=== PATIENT | female | born 1985 | race African-American/Black ===

== ENCOUNTER 2019-09-24 09:42 | Emergency (ER) | payer OTHER, MEDICAID, SELFPAY ==
--- NOTE | ~2019-09-24 | XR_ITS ---
EXAMINATION: XR chest 2V DATE: 09/24/2019 11:29 INDICATION: Chest pain TECHNIQUE: PA and lateral views of the chest are obtained. COMPARISON: None available FINDINGS: The lungs are free of acute opacities. There is no pleural effusion or pneumothorax. The ca rdiomediastinal silhouette is normal. The visualized bones and soft tissues are unremarkable. Cholecy stectomy clip is noted in the right upper quadrant. IMPRESSION: 1. No acute cardiopulmonary abnormality. Reviewed, dictated and finalized at location A.
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
--- NOTE | ~2019-09-24 | XR_ITS ---
EXAMINATION: XR shoulder LT min 2V INDICATION: Left shoulder pain TECHNIQUE: Four views of the left shoulder are submitted. COMPARISON: None FINDINGS: Normal alignment. No fracture. Glenohumeral and acromioclavicular joint spaces are normal. Soft tissues are unremarkable. IMPRESSION: No acute osseous abnormality. Reviewed, dictated and finalized at location A.
--- NOTE | ~2019-09-24 | CT_ITS ---
EXAMINATION: CT cervical spine wo con DATE: 09/24/2019 11:24 INDICATION: Neck pain TECHNIQUE: Computed tomography (CT) of the cervical spine was performed without intravenous contrast. The dose-length product (DLP) was 362.07 mGy-cm. Automated exposure control and iterative reconstruc tion technique were employed. COMPARISON: None FINDINGS: There is no fracture, dislocation, or subluxation. The vertebral body heights, alignment, a nd intervertebral disc spaces are normal. The paravertebral soft tissues are unremarkable. The odonto id is intact. IMPRESSION: 1. Normal cervical spine. Reviewed, dictated and finalized at location A. IMPRESSION: 1. Normal cervical spine.
[2019-09-24 09:51] VITALS: BP 133/84; PULSE 83; RESP 20; TEMP 37.3; O2SAT 100
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
[2019-09-24 10:17] VITALS: RESP 14; O2SAT 100
[2019-09-24 10:34] LABS: Basophils Percent Auto 0.8 % (0.2-1.2); Eosinophils Absolute Auto 0.1 K/mm3 (0-0.3); Eosinophils Percent Auto 2.2 % (0-4.4); Hematocrit 38.6 % (37.0-47.0); Hemoglobin 12.5 g/dL (12.0-15.0); Lymphocytes Absolute Auto 2.47 K/mm3 (0.9-3.2); Lymphocytes Percent Auto 50.5 % (18.3-44.2); Mean Corpuscular HGB Conc 32.4 g/dl (32-36); Mean Corpuscular Hemoglobin 27.9 pg (26-34); Mean Corpuscular Volume 86.2 fl (80-100); Mean Platelet Volume 10.1 fl (7.4-10.4); Monocytes Absolute Auto 0.4 K/mm3 (0.1-0.6); Monocytes Percent Auto 8.4 % (2.6-8.5); Neutrophils Absolute Auto 1.9 K/mm3 (1.3-6.7); Neutrophils Percent Auto 38.1 % (45.5-73.1); Platelet Count Result 255 k/mm3 (150-375); Red Blood Count 4.48 M/mm3 (4.2-5.4); Red Cell Distribution Width 14.6 % (11.5-14.5); White Blood Count 4.9 K/mm3 (4.5-10.0)
[2019-09-24 10:37] LABS: Add Urine Microscopic? YES; Appearance Urine Clear (Clear); Bacteria Urine Trace /hpf; Bilirubin Urine Negative (Negative); Blood Urine Negative (Negative); Color Urine Straw (Yellow); Glucose Urine UA Negative (Negative); Ketones Urine Negative (Negative); Leukocyte Esterase Ur Negative LEU/UL (Negative); Mucus Urine Rare /lpf; Nitrate Urine Negative (Negative); Protein Urine Negative (Negative); Specific Grav Ur 1.019 (1.001-1.035); Squamous Epithelial Cell Urine Occasional /hpf (Few); Urobilinogen Urine Negative mg/dL (<2.0); WBC Urine 0-3 /hpf
[2019-09-24 10:49] LABS: Alanine Aminotransferase 12 U/L (4-35); Albumin Level 4.5 g/dL (3.5-5.1); Alkaline Phosphatase 47 U/L (38-126); Aspartate Amino Transferase 19 U/L (14-36); Bilirubin,Total 0.2 mg/dL (0.2-1.3); Blood Urea Nitrogen 13 mg/dL (7-17); Calcium 9.3 mg/dL (8.4-10.2); Carbon Dioxide 28 mmol/L (22-30); Chloride 102 mmol/L (98-107); Estimated CRCL calculation 105 ml/min; Estimated Glomerular Filt Rate > 60; Glucose 96 mg/dL (65-105); Potassium 4.3 mmol/L (3.4-5.0); Sodium 137 mmol/L (137-145)
[2019-09-24] MEDS: KETOROLAC 30 MG/ML VIAL (*BKC) IV PUSH (12:11)
--- NOTE | 2019-09-24 12:32 | PC.NURSE ---
C-Collar removed, EDP notified and is ok with removal, no cervical fractures.
[2019-09-24 12:57] VITALS: BP 120/80; PULSE 80; RESP 20; TEMP 36.7; O2SAT 99
== END 2019-09-24 12:58 | disposition home or self-care (01) ==
PROVIDERS: Emergency Provider Emergency Medicine
DX: S16.1XXA Strain of muscle, fascia and tendon at neck level, initial encounter (principal); S30.1XXA Contusion of abdominal wall, initial encounter; J45.909 Unspecified asthma, uncomplicated; G47.30 Sleep apnea, unspecified; E55.9 Vitamin D deficiency, unspecified; V43.52XA Car driver injured in collision with other type car in traffic accident, initial encounter
CPT/HCPCS: 36415; 71046; 72125; 73030; 74177; 80053; 81001; 81025; 85025; 96374; 99284; J1885; L0140; Q9967

== ENCOUNTER 2019-09-26 14:12 | Outpatient (CLI) | payer OTHER, MEDICAID, SELFPAY ==
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
--- NOTE | ~2019-09-26 | XR_ITS ---
EXAMINATION: XR sacroiliac joints min 3V EXAM DATE: 09/26/2019 14:43 INDICATION: Sacroiliitis. TECHNIQUE: Sacral, bilateral frontal projections. There is no prior study for comparison. FINDINGS: There is IUD projecting over the central aspect of the pelvis. There is mild symmetric dragan ateral sacroiliac primary osteoarthritis. There are no acute fractures or dislocations identified. T here is no subcutaneous gas. Couple of phleboliths. IMPRESSION: Mild bilateral sacroiliac osteoarthritis. Reviewed, dictated and finalized at location A.
== END 2019-09-26 14:13 | disposition home or self-care (01) ==
PROVIDERS: PCP Family Medicine; Visit Provider Family Medicine
DX: M54.5 Low back pain (principal); M46.1 Sacroiliitis, not elsewhere classified; M47.898 Other spondylosis, sacral and sacrococcygeal region
CPT/HCPCS: 72100; 72202

== ENCOUNTER 2019-10-13 13:39 | Outpatient (CLI) | payer MEDICAID, SELFPAY ==
--- NOTE | ~2019-10-13 | US_ITS ---
EXAMINATION: US pelvic complete w TV EXAM DATE: 10/13/2019 14:28 INDICATION: Endometriosis. TECHNIQUE: Pelvic transabdominal and transvaginal sonogram was performed. There are multiple graysca le and Doppler images available for interpretation. Comparison is made to prior examination from 2018. FINDINGS: Uterus measures 6.2 x 3.9 x 6.0 cm, with IUD centrally located inside the endometrial cavi ty. There is probable 8 mm fibroid. Endometrial stripe measures 5 mm, within normal limits. There is no free pelvic fluid. Right adnexa: The ovary measures 6.0 x 5.1 x 6.7 cm, with 2 contiguous cystic regions, larger measuri ng 5.7 x 5.0 x 5.4 cm and the smaller 2.0 x 2.5 x 2.5 cm. There is some proteinaceous fluid layering in the larger region. This could be a hemorrhagic cyst or endometrioma. Cystic neoplasm less likely, not entirely excludable. Ovarian vascular flow confirmed. Left adnexa: The ovary measures 2.8 x 1.5 x 2.1 cm and is morphologically normal. Ovarian vascular fl ow confirmed. IMPRESSION: 1. Complex cystic right ovarian region with layering fluid/protein level. Could be hemorrhagic cyst or endometrioma. Consider 6 week follow-up pelvic sonogram. 2. IUD in expected position. 3. Probable subcentimeter fibroid. Reviewed, dictated and finalized at location A. IMPRESSION: 1. Complex cystic right ovarian region with layering fluid/protein level. Coul d be hemorrhagic cyst or endometrioma. Consider 6 week follow-up pelvic sonogra m. 2. IUD in expected position. 3. Probable subcentimeter fibroid.
== END 2019-10-13 13:40 | disposition home or self-care (01) ==
LOC: ANHIMG 13:40
PROVIDERS: PCP Family Medicine; Visit Provider Student in an Organized Health Care Education/Training Program
DX: Z87.42 Personal history of other diseases of the female genital tract (principal); Z97.5 Presence of (intrauterine) contraceptive device; R93.89 Abnormal findings on diagnostic imaging of other specified body structures
CPT/HCPCS: 76830; 76856

== ENCOUNTER 2019-11-26 23:16 | Emergency (ER) | payer MEDICAID, SELFPAY ==
--- NOTE | ~2019-11-26 | CT_ITS ---
EXAMINATION: CT abdomen pelvis w con EXAM DATE: 11/27/2019 00:54 INDICATION: Abdominal pain, cramping and nausea. TECHNIQUE: Spiral CT of the abdomen and pelvis was performed following intravenous injection of 100 m L Omnipaque 350. Axial, coronal and sagittal images were reviewed. The dose-length product (DLP) fo r this examination was 805.75 mGy-cm. The exposure was tailored according to patient size (auto mA e xposure control), and iterative reconstruction (ASIR) was used as additional dose reduction technique . Comparison is made to prior examination from 09/24/2019. FINDINGS: The liver, spleen, adrenal glands and pancreas are unremarkable. Gallbladder is unremarkab le. No biliary obstruction. Portal and splenic veins are patent. Kidneys enhance symmetrically. T here is no hydronephrosis. The uterus is retroverted with IUD in expected position. Again there is a right-sided teratoma which is bilobulated, measuring about 3 x 5 cm. The bladder is unremarkable. There is no retroperitoneal or pelvic lymphadenopathy. The appendix is normal. The stomach and small bowel are unremarkable. There is expected amount of c olonic stool. No free intraperitoneal gas. The heart is normal in size. There are no pericardial or pleural effusions. The lung bases are unremarkable. Fused T9-11 vertebral bodies. IMPRESSION: 1. No acute intra-abdominal findings. 2. Right ovarian teratoma. Reviewed, dictated and finalized at location A.
[2019-11-26 23:25] VITALS: BP 131/88; PULSE 92; RESP 18; TEMP 36.6; O2SAT 99
[2019-11-27 00:24] LABS: Basophils Percent Auto 0.5 % (0.2-1.2); Eosinophils Absolute Auto 0.2 K/mm3 (0-0.3); Eosinophils Percent Auto 2.5 % (0-4.4); Hematocrit 37.6 % (37.0-47.0); Immature Granulocyte Absolute 0.02 K/mm3 (0.00-0.031); Immature Granulocyte Percent A 0.2 % (0-0.5); Lymphocytes Absolute Auto 3.72 K/mm3 (0.9-3.2); Lymphocytes Percent Auto 45.9 % (18.3-44.2); Mean Corpuscular HGB Conc 31.9 g/dl (32-36); Mean Corpuscular Hemoglobin 27.3 pg (26-34); Mean Corpuscular Volume 85.6 fl (80-100); Mean Platelet Volume 10.3 fl (7.4-10.4); Monocytes Absolute Auto 0.7 K/mm3 (0.1-0.6); Monocytes Percent Auto 8.6 % (2.6-8.5); Neutrophils Absolute Auto 3.4 K/mm3 (1.3-6.7); Neutrophils Percent Auto 42.3 % (45.5-73.1); Platelet Count Result 257 k/mm3 (150-375); Red Blood Count 4.39 M/mm3 (4.2-5.4); Red Cell Distribution Width 15.1 % (11.5-14.5); White Blood Count 8.1 K/mm3 (4.5-10.0)
[2019-11-27 00:30] VITALS: BP 128/90; PULSE 82; RESP 16; O2SAT 97
[2019-11-27 00:31] LABS: Add Urine Microscopic? YES; Amorphous Sediment Urine Few; Appearance Urine Cloudy (Clear); Bacteria Urine Trace /hpf; Bilirubin Urine Negative (Negative); Blood Urine Negative (Negative); Color Urine Yellow (Yellow); Glucose Urine UA Negative (Negative); Ketones Urine Negative (Negative); Leukocyte Esterase Ur Trace LEU/UL (Negative); Mucus Urine Rare /lpf; Nitrate Urine Negative (Negative); Protein Urine Negative (Negative); Specific Grav Ur 1.026 (1.001-1.035); Squamous Epithelial Cell Urine Few /hpf (Few); Urobilinogen Urine Negative mg/dL (<2.0); WBC Urine 0-3 /hpf
[2019-11-27 00:36] LABS: Alanine Aminotransferase 17 U/L (4-35); Albumin Level 4.4 g/dL (3.5-5.1); Alkaline Phosphatase 51 U/L (38-126); Aspartate Amino Transferase 22 U/L (14-36); Bilirubin,Total 0.2 mg/dL (0.2-1.3); Blood Urea Nitrogen 14 mg/dL (7-17); Calcium 9.6 mg/dL (8.4-10.2); Carbon Dioxide 28 mmol/L (22-30); Chloride 103 mmol/L (98-107); Estimated CRCL calculation 107 ml/min; Estimated Glomerular Filt Rate > 60; Glucose 95 mg/dL (65-105); Lipase 90 U/L (23-300); Sodium 135 mmol/L (137-145)
--- NOTE | 2019-11-27 00:41 | ED.ABDPAIN ---
HPI - Abdominal Pain General Chief Complaint: Abdominal Pain Stated Complaint: abd cramping Time Seen by Provider: 11/26/19 23:35 Source: RN notes reviewed History of Present Illness HPI narrative: Patient presents to emergency department from home for abdominal pain. Patient states symptoms began 3 days ago. Patient states the pain is diffuse throughout the abdomen described as cramping. States associated nausea. Denies any fevers or chills chest pain shortness of breath vomiting diarrhea or any other symptoms of concern. States she took ibuprofen this morning with minimal relief Related Data Home Medications Medication Instructions Recorded Confirmed beclomethasone dipropionate 80 1 inhalation INHALATION Q12H 09/21/19 mcg/actuation HFA breath activated aerosol albuterol sulfate 90 mcg/actuation 1 puff INHALATION Q4H PRN 09/26/19 09/26/19 aerosol inhaler fluticasone propionate 50 1 spray NASAL DAILY 09/26/19 09/26/19 mcg/actuation nasal spray,suspension levonorgestrel 20 mcg/24 hours (5 1 device I-UTERINE ONCE 09/26/19 09/26/19 yrs) 52 mg intrauterine device Allergies Allergy/AdvReac Type Severity Reaction Status Date / Time acetaminophen Allergy Unknown Rash Verified 11/18/19 08:51 hydrocodone Allergy Unknown Rash Verified 11/18/19 08:51 Review of Systems Review of Systems: Narrative: Gen.: Denies fevers or chills ENT: Denies congestion Respiratory: Denies shortness of breath or cough CV: Denies chest pain or palpitations GI: See HPI denies burning, urgency, frequency or hematuria Musculoskeletal: Denies back pain or muscle pain Neuro: Denies numbness, tingling, weakness or focal weakness Skin: Denies rash Except as documented, all other systems reviewed and negative [facility] Past Medical History Medical History Anemia Asthma Depression Endometriosis H/O fracture of fibula Hypersomnia Migraine Narcolepsy and cataplexy Ovarian cyst Presence of retained hardware Renal cyst Seasonal allergic rhinitis Sleep apnea Vitamin D deficiency Surgical History Surgical History History of cholecystectomy History of laparoscopy S/P hardware removal [place] teeth removed Social History Social History Smoking status: Never smoker Alcohol intake: current Substance use: never Gender identity (if verbalized by the patient): Female Exam Narrative: Exam Narrative: APPEARANCE: No acute distress, nontoxic, resting in bed HEENT: Normocephalic, atraumatic, OMM RESPIRATORY: No respiratory distress, clear to auscultation bilaterally with no rhonchi wheezing or rales CARDIOVASCULAR: RRR s murmur ABDOMINAL: Soft, nondistended, diffusely tender to palpation, no rebound or guarding MUSCULOSKELETAl: Moves all extremities. No clubbing, cyanosis or edema. NEURO: Awake and alert. Following commands, speech normal, no focal deficits SKIN:: Warm, dry. Normal Color PSYCHIATRIC: Normal affect/mood Course Course Emergency Course: Discussed with patient CT results and reviewed old records. The patient is been worked up for her dermoid cyst by Dr. Burgess as an outpatient Patient states pain is improved with morphine and resolved with dicyclomine Patient states that they are feeling much better at this time. States abdominal pain has resolved. Repeat abdominal exam shows the patient's abdomen to be soft and nontender. Discussed with patient results of workup and diagnosis. Discussed need for follow-up with primary care physician, reasons to return to the emergency department in proper use of medication. Patient understands and agrees to current treatment plan Vital Signs Vital signs: Vital Signs Temperature 97.8 F 11/26/19 23:25 Pulse Rate 92 11/26/19 23:25 Respiratory Rate 18 11/26/19 23:25 Blood Pressure 131/88 11/26/19 23
[2019-11-27] MEDS: SODIUM CHLORIDE 0.9% IV 1,000 ML 999 ML IV CONT (01:00)
[2019-11-27] MEDS: KETOROLAC 30 MG/ML VIAL (*BKC) IV PUSH (01:00)
[2019-11-27] MEDS: ONDANSETRON INJ 4 MG/2 ML VIAL IV PUSH (01:16)
[2019-11-27 02:06] VITALS: BP 131/91; PULSE 82; RESP 16; O2SAT 100
[2019-11-27] MEDS: DICYCLOMINE HCL INJ 20 MG/2 ML VIAL IM (02:42)
[2019-11-27 03:20] VITALS: BP 129/90; PULSE 80; RESP 16; O2SAT 100
== END 2019-11-27 03:25 | disposition home or self-care (01) ==
PROVIDERS: Emergency Provider Emergency Medicine; PCP Family Medicine
DX: N83.202 Unspecified ovarian cyst, left side (principal); Z86.2 Personal history of diseases of the blood and blood-forming organs and certain disorders involving the immune mechanism; N80.9 Endometriosis, unspecified; G47.30 Sleep apnea, unspecified; E55.9 Vitamin D deficiency, unspecified
CPT/HCPCS: 36415; 74177; 80053; 81001; 81025; 83690; 85025; 96361; 96372; 96374; 99284; J0500; J1885; J2405; J7030; Q9967

== ENCOUNTER 2019-11-29 12:57 | Outpatient (CLI) | payer MEDICAID, SELFPAY ==
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
== END 2019-11-29 12:58 | disposition home or self-care (01) ==
LOC: ANHIMG 12:59
PROVIDERS: PCP Family Medicine; Visit Provider Family Medicine
DX: M47.896 Other spondylosis, lumbar region (principal); M99.03 Segmental and somatic dysfunction of lumbar region
CPT/HCPCS: 72148

== ENCOUNTER 2020-01-02 11:22 | Outpatient (CLI) | payer OTHER, SELFPAY ==
--- NOTE | ~2020-01-02 | US_ITS ---
EXAMINATION: US pelvic complete w TV DATE: 01/02/2020 12:38 INDICATION: Unspecified ovarian cyst, right side; history of dermoids on prior CT examinations TECHNIQUE: Multiple transabdominal and endovaginal sonographic images of the pelvis were obtained. COMPARISON: 11/27/2019, 10/13/2019 FINDINGS: The uterus measures 7.6 x 4.9 x 3.8 cm. The endometrial complex measures 5 mm. An IUD is no vesna. The right ovary measures 3.5 x 3.2 x 2.7 cm. A right ovarian cyst has decreased in size now caio uring up to 2.8 cm. The right adnexal dermoids described on CT examination are not identified. The le ft ovary measures 2.9 x 2.0 x 1.5 cm. There is normal vascular flow in the ovaries. There is no free fluid in the pelvis. IMPRESSION: 1. Decreased size of right ovarian cyst. Reviewed, dictated and finalized at location A.
== END 2020-01-02 11:23 | disposition home or self-care (01) ==
PROVIDERS: PCP Family Medicine; Visit Provider Student in an Organized Health Care Education/Training Program
DX: N83.201 Unspecified ovarian cyst, right side (principal)
CPT/HCPCS: 76830; 76856

== ENCOUNTER 2020-01-11 00:25 | Outpatient (CLI) | payer OTHER, SELFPAY ==
[2020-01-11 18:41] LABS: SARS-CoV-2 RNA PCR Negative
== END 2020-01-11 00:26 | disposition home or self-care (01) ==
LOC: ANHCOVIDDT 00:25
PROVIDERS: PCP Family Medicine; Visit Provider Student in an Organized Health Care Education/Training Program
DX: Z01.812 Encounter for preprocedural laboratory examination (principal); Z11.59 Encounter for screening for other viral diseases
CPT/HCPCS: 87635; C9803; U0003

== ENCOUNTER 2020-01-13 01:45 | Day surgery (SDC) | payer OTHER, SELFPAY ==
[2019-12-27 10:47] VITALS: BMI 33.5
--- NOTE | 2020-01-12 16:25 | PM.IMHP ---
H&P: HPI History of Present Illness Date/Time: 01/12/20 16:25 Chief complaint: Dermoid Cyst, Pelvic Pain Narrative: Juliet Carrera is a 34 year old nulligravid female with long history of pelvic pain. Pt was initially referred to [facility] long term care office in 09/2019 for ovarian cysts noted on recent CT scan. Two 1.3cm suspected dermoid within right ovary were noted, however, on most recently follow up imaging, the previously identified dermoid cysts were not visualized and what appears to be a simple cyst has decreased in size and is now 2.8cm. Patient, however, also reported a long history of pelvic pain and dyspareunia since early 2018. Pain was described as dull, occasionally moderate lower abdominal pain. She had laparoscopic surgery in 2003 and states that endometriosis was cleaned out. Current pain is mostly on right side, however, also located on the left side and infraumbilical region. Patient has a Mirena IUD that was inserted in 2016. Reports mostly amenorrhea with IUD in place, however, does experience occ spotting. Patient also reports long history of dsypareunia. States that pain is severe and occurs during intromission and deep penetration. She also reports feeling always tense during intercourse. She reports significant lingering pain that can sometimes last up to a week after intercourse. She moved here from [place] in 2018 and saw a pelvic floor therapist prior to moving. She states that she still performs the pelvic floor exercises, however, has not seen a therapist since moving. Patient was seen in the ED on 11/27/19 for severe pelvic pain. She reported persistent, constant right-sided pelvic pain that has became more intense and unresponsive to pain medication over time. She was started on Oril[place] and self d/c'd it after 2 months. She does state that medication may have helped some as the pain is not as horrible and is tolerable, but still constantly present. Due to the constant right sided pelvic pain with inadequate response to medical therapy, patient was offered a diagnostic, possible operative laparoscopy. Decision made to proceed with surgery. Other than the pelvic pain, patient reports feeling well. Review of Systems Review of Systems: All systems reviewed & are unremarkable except as noted in HPI and below Constitutional: Constitutional: Reports as per HPI, Reports no additional constitutional complaints, Denies chills, Denies fever(s), Denies headache(s) and Denies night sweats Eyes: Eyes: Reports as per HPI and Reports no additional eye complaints ENT: Reports system reviewed and no additional complaints, except as documented, Reports as per HPI, Reports Normal hearing present and Denies headache(s) Cardiovascular: Cardiovascular: Reports as per HPI, Reports no additional cardiovascular complaints, Denies chest pain and Denies dyspnea Respiratory: Respiratory: Reports as per HPI, Reports no additional respiratory complaints, Denies cough and Denies dyspnea Gastrointestinal: Gastrointestinal: Reports as per HPI, Reports no additional gastrointestinal complaints, Denies abdominal pain, Denies change in bowel habits, Denies change in stool character, Denies nausea and Denies vomiting Genitourinary: Genitourinary: Reports no additional female genitourinary complaints, Reports as per HPI, Denies abnormal vaginal bleeding, Denies genital lesions, Denies hot flashes, Denies dyspareunia, Reports pelvic pain, Denies sexual dysfunction, Reports flank pain, Denies urinary incontinence, Denies vaginal discharge, Denies vaginal dryness and Denies vaginal odor Musculoskeletal: Musculoskeletal: Reports no additional musculoskeletal complaints and Reports as per HPI Integumentary/Breasts: Skin/Breast: Reports system reviewed and no additional complaints, except as docu, Reports as per HPI, Denies breast pain and Denies nipple discharge Neurologic: Reports system reviewed and no additional complaints, except as documented, Reports as per HPI, Reports Normal hearin
[2020-01-13] VITALS (10 sets, daily range): BP systolic 116–136; BP diastolic 74–90; PULSE 76–92; RESP 18–22; TEMP 36.1–36.6; O2SAT 92–100
--- NOTE | 2020-01-13 06:52 | WPDANESEPPF ---
Anes - Initial Pre Proc Eval Procedure: Operation Date: 01/13/20 07:30 Proposed Procedures p Diagnostic Laparoscopy, Right Ovarian Cystectomy - Linsey Burgess MD Date/Time: 01/13/20 06:52 Surgeon: Linsey Burgess MD Pre Op Diagnosis: Dermoid Cyst, Pelvic Pain Patient Data Age: 34 Gender: F Height: 5 ft 8 in Weight: 100 kg Allergies Allergy/AdvReac Type Severity Reaction Status Date / Time hydrocodone Allergy Intermediate Rash Verified 01/13/20 06:49 Home Medications Medication Instructions Recorded Confirmed Type beclomethasone dipropionate 80 1 inhalation INHALATION Q12H 09/21/19 12/27/19 History mcg/actuation HFA breath activated aerosol albuterol sulfate 90 mcg/actuation 1 puff INHALATION Q4H PRN 09/26/19 12/27/19 History aerosol inhaler fluticasone propionate 50 1 spray NASAL DAILY 09/26/19 12/27/19 History mcg/actuation nasal spray,suspension levonorgestrel 20 mcg/24 hours (5 1 device I-UTERINE ONCE 09/26/19 12/27/19 History yrs) 52 mg intrauterine device fluoxetine 10 mg capsule 10 mg PO DAILY 30 Days #30 cap 11/18/19 12/27/19 Rx ibuprofen [IBU] 600 mg PO Q6H PRN #20 tablet 11/27/19 12/27/19 Rx dextroamphetamine-amphetamine 10 10 mg PO BID 30 Days #60 tablet 01/04/20 01/04/20 Rx mg tablet Patient hx anesthesia problems: none Family hx anesthesia problems: none PMFSH Social History Social History Smoking status: Never smoker Alcohol intake: current Drinks per week: 1 Substance use: never Substance use type: does not use Living arrangements: alone Gender identity (if verbalized by the patient): Female Spiritual care concerns: No Anes - Eval Final PreProcedure Day of Procedure 01/13/20 06:52 Patient weight: obese Heart: regular rate and rhythm Lungs: clear to auscultation Airway: Mallampati scale class II Neurological: alert and oriented Last oral intake: >/= 8 hours ASA classification: II Emergent: no Anesthetic plan: proceed Anesthesia type and monitoring: general ETT and standard monitoring Informed Consent: The patient's anesthetic plan and its attendant risks and benefits were discussed with the patient/family/POA. Questions were solicited and answers provided to the satisfaction of the patient/family/POA.
[2020-01-13] MEDS: ACETAMINOPHEN 500 MG TABLET 1000 MG PO (06:56)
[2020-01-13] MEDS: LACTATED RINGERS 1,000 ML 30 ML IV CONT ×2 (07:21→09:27)
[2020-01-13] MEDS: KETOROLAC 15 MG/ML VIAL (*BKC) IV PUSH (07:21)
--- NOTE | 2020-01-13 07:21 | WPDHPUPDATE1 ---
History and Physical Update Update Date/Time: 01/13/20 07:21 History and Physical has been reviewed, including an updated exam of the patient. There are NO changes in the patient's condition. Risks, benefits, and alternatives have been discussed and questions answered. Patient agrees to proceed with procedure.
--- NOTE | 2020-01-13 09:19 | PM.PROC ---
Procedure Note - Detailed Date of procedure: 01/17/20 Pre-op diagnosis: Dermoid Cyst, Pelvic Pain Post-op diagnosis: same Procedure performed: Operative laparoscopy, lysis of adhesions, right ovarian cystectomy with excision of dermoid cyst x 2 Description of procedure: The patient was taken to the operating room where she self transferred to the operating room table. Patient was placed in dorsal supine position. General anesthesia was administered and found to be adequate. The patient was repositioned dorsal lithotomy position with the use of Alvaro stirrups. Patient was prepped and draped in usual sterile fashion. A sponge stick was placed in the vagina for manipulation of the uterus during the laparoscopic portion of the case. Sorting Cows Worker's gloves were changed. Attention was then turned to patient's abdomen. Approximately 5 cc of Exparel was injected in the infraumbilical region. An infraumbilical skin incision was made with a scalpel. With the abdomen tented up, a Veress needle was inserted into the abdominal cavity. Intra-abdominal confirmation was made with saline. Carbon dioxide tubing was attached to the Veress needle and insufflation was begun. When adequate pneumoperitoneum was achieved, the Veress needle was removed and a 5 mm Optiview trocar was introduced under direct visualization into the abdominal cavity. The laparoscope was introduced into abdominal cavity and a general survey was performed. An extensive amount of omental adhesions to the anterior abdominal wall was noted. The patient was placed in Trendelenburg position, however, visualization of the pelvic structures was limited due to the omental adhesions. Decision was made to place two accessory trocars to facilitate the remainder of the procedure. A small amount of Exparel was injected in the left lower quadrant and a 5 mm skin incision was made with a scalpel. A 5 mm trocar was introduced under direct visualization. Similarly, a small amount of Exparel was injected in the right lower quadrant and a 5 mm skin incisions made with a scalpel. An additional 5 mm trocar was introduced under direct visualization. With the use of atraumatic graspers and Endo Nataliia, the omental adhesions were cauterized and ligated completely freeing the omentum from the anterior abdominal wall. This greatly enhanced visualization of abdominal and pelvic structures. The liver was visualized and appeared to be grossly normal as did the stomach. The uterus was visualized and appeared to be grossly normal. The left fallopian tube and ovary were visualized and appeared to be normal and free of adhesions. The right fallopian tube appeared to be normal. The right ovary, however, was noted to be enlarged. An omental adhesion to the right ovary was also visualized. This adhesion was cauterized and ligated with Endo Nataliia. The posterior cul-de-sac was inspected and noted to have a few filmy adhesions, possible remnants from prior endometriosis diagnosis. Two small blebs on the posterior uterine wall were also visualized, also possibly endometriotic lesions, however, not excised due to small size. The right ovary was inspected again. Several areas containing likely cysts were visualized. A puncture was made in the right ovary overlying possible cyst with Endo Nataliia. A moderate amount of clear fluid drained. Two other areas containing suspected cysts were seen. A puncture was made in the area overlying possible cyst. Fatty tissue and hair was visualized. The ovarian cortex incision was then extended and the contents were grasped with an atraumatic grasper. With the use of traction and counter traction maneuvers, the dermoid cyst was detached from the remainder of the ovary and completely excised. The right lower quadrant 5mm trocar was removed and replaced with a 10 mm trocar to allow the insertion of an Endo-Catch bag. Endo-Catch bag was introduced into abdominal cavity and the dermoid cyst was removed and handed off the f
--- NOTE | 2020-01-13 09:48 | SUR.PHASEI ---
0945: Overhead paged Dr. Burgess for discharge orders
--- NOTE | 2020-01-13 10:04 | SUR.PHASEI ---
1000: Called Dr. Burgess's office to inform them I need discharge orders.
[2020-01-13] MEDS: oxyCODONE/ACETAMINOPHEN 5-325 MG TABLET 1 TABLET PO (11:09)
== END 2020-01-13 12:00 | disposition home or self-care (01) ==
PROVIDERS: PCP Family Medicine; Visit Provider Student in an Organized Health Care Education/Training Program
PROC: (CPT 49320; principal; 2020-01-13 07:30)
DX: D27.0 Benign neoplasm of right ovary (principal); N73.6 Female pelvic peritoneal adhesions (postinfective); R10.2 Pelvic and perineal pain; E66.9 Obesity, unspecified; Z68.34 Body mass index [BMI] 34.0-34.9, adult
CPT/HCPCS: 58662; 88305; 88307; A9270; C9290; J0330; J1100; J1885; J2250; J2405; J2704; J3010; J7030; J7120

== ENCOUNTER 2020-04-06 09:46 | Outpatient (CLI) | payer OTHER, SELFPAY ==
--- NOTE | 2020-04-06 10:02 | ECHO_ITS ---
Patient Info Name: Juliet Carrera Age: 35 years : 1985 Gender: Female Ht: 68 in Wt: 216 lbs BSA: 2.20 m2 HR: 97 bpm BP: 126 / 84 mmHg Exam Date: 04/06/2020 10:15 AM Exam Location: [facility] Patient Status: Outpatient Admit Date: 04/06/2020 Staff Ordering Physician: Richie Morin APRN Hydraulics Teacher: Kirsten Cloud RDCS Attending Provider: Priscilla Jimenez MD Referring Physician: Richie Morin APRN; Exam Type: CA echo dop color flow w con Study Info Indications - HYPERSOMINIA Summary 1. Left ventricular chamber dimension is normal. 2. Left ventricular systolic function is normal, estimated at 60-65%. 3. The left ventricular diastolic function is grade I diastolic dysfunction. 4. E/e' 9 is minimally elevated. 5. There is trace tricuspid valve regurgitation. 6. No pulmonary hypertension, estimated pulmonary arterial systolic pressure is 20 mmHg. 7. There is trace pulmonic regurgitation. Left Ventricle E/e' 9 is minimally elevated. Left ventricular chamber dimension is normal. Left ventricular systolic function is normal, estimated at 60-65%. The left ventricular diastolic function is grade I diastolic dysfunction. Right Ventricle Right ventricular chamber dimension is normal. Right ventricular systolic function is normal. Left Atria Left atrial chamber dimension is normal. Right Atria Right atrial chamber dimension is normal. Aortic Valve The aortic valve is trileaflet. There is no aortic valve stenosis. There is no aortic valve regurgitation. Pulmonic Valve There is trace pulmonic regurgitation. Mitral Valve There is no mitral valve stenosis. There is no mitral valve regurgitation. Tricuspid Valve There is trace tricuspid valve regurgitation. No pulmonary hypertension, estimated pulmonary arterial systolic pressure is 20 mmHg. Pericardium/Pleural There is no pericardial effusion. Inferior Vena Cava Normal inferior vena cava with >50% collapse upon inspiration consistent with normal right atrial pressure, 5 mmHg. Aorta The aortic root size at the sinus of Valsalva is normal. Left Ventricular Outflow Tract Name Value Normal LVOT 2D LVOT Diameter 2.04 cm LVOT Doppler LVOT Peak Gradient 5 mmHg LVOT Mean Gradient 3 mmHg LVOT VTI 20.79 cm LVOT VTI/AV VTI Ratio 0.81 LVOT Stroke Volume 67.96 ml LVOT CO 15.53 l/min LVOT CI 7.05 L/min/m2 Pulmonic Valve Name Value Normal PV Doppler PV Peak Gradient 3 mmHg Mitral Valve Name Value Normal
[2020-04-06 12:04] LABS: Free T4 Free Thyroxine 0.86 ng/mL (0.78-2.19); Vitamin D 25 Hydroxy 26.9 ng/mL
[2020-04-06 13:56] LABS: Iron 80 ug/dL (37-170)
[2020-04-06 14:08] LABS: Percent Iron Saturation 28 % (20-50)
== END 2020-04-06 09:47 | disposition home or self-care (01) ==
PROVIDERS: PCP Family Medicine; Referring Provider Nurse Practitioner Family; Visit Provider Internal Medicine Critical Care Medicine
DX: G47.10 Hypersomnia, unspecified (principal); R60.9 Edema, unspecified; R53.83 Other fatigue
CPT/HCPCS: 36415; 82306; 82607; 82746; 83540; 83550; 84439; 84443; C8929

== ENCOUNTER 2020-05-29 06:50 | Outpatient (NON) | payer OTHER, SELFPAY ==
[2020-05-29 18:45] LABS: SARS-CoV-2 RNA PCR Positive
== END 2020-05-29 06:51 ==
LOC: ANHCOVIDDT 06:55
PROVIDERS: PCP Family Medicine; Visit Provider Physician Assistant
DX: U07.1 COVID-19 (principal)
CPT/HCPCS: 87635; C9803; U0003

== ENCOUNTER 2020-06-02 14:30 | Emergency (ER) | payer OTHER, SELFPAY ==
--- NOTE | ~2020-06-02 | XR_ITS ---
EXAMINATION: XR chest 1V portable INDICATION: Cough, COVID 19 TECHNIQUE: Portable AP chest at 1446 hours COMPARISON: 09/24/2019 FINDINGS: The lung volumes are low. There are diffuse opacities in the lungs. No pleural effusion or pneumothorax is identified. The cardiomediastinal silhouette is normal. The visualized osseous struct ures are unremarkable. IMPRESSION: 1. Diffuse lung disease, consistent with atelectasis versus pneumonia. Reviewed, dictated and finalized at location A. RESCUE MANAGER
[2020-06-02 14:33] VITALS: BP 130/89; PULSE 124; RESP 22; TEMP 36.6; O2SAT 94
--- NOTE | 2020-06-02 15:02 | ED.URI ---
HPI - URI/Sore Throat General Chief Complaint: Upper Respiratory Infection Stated Complaint: sob/covid + Time Seen by Provider: 06/02/20 14:56 History of Present Illness HPI Narrative: 35 yo female brought in by EMS from home for COVID-19 symptoms. She reports that she was diagnosed with COVID-19 10 days ago she has had a cough, SOB, body aches since that time. She is concerned that her symptoms are not improving. She also has chest wall pain especially with coughing. Fevers have resolved. Related Data Home Medications Medication Instructions Recorded Confirmed levonorgestrel 20 mcg/24 hours (6 1 device I-UTERINE ONCE 09/26/19 05/21/20 yrs) 52 mg intrauterine device Allergies Allergy/AdvReac Type Severity Reaction Status Date / Time hydrocodone Allergy Intermediate Rash Verified 06/02/20 14:33 Review of Systems Review of Systems: All systems reviewed & are unremarkable except as noted in HPI and below Constitutional: Constitutional: Reports fatigue, Denies fever(s) and Reports weakness ENT: Reports sore throat Cardiovascular: Cardiovascular: Reports chest pain Respiratory: Respiratory: Reports chest congestion, Reports cough and Reports dyspnea Gastrointestinal: Gastrointestinal: Reports nausea Neurologic: Reports dizziness and Reports weakness PMFSH Past Medical History Medical History Anemia Asthma Depression Edema Endometriosis H/O fracture of fibula Hypersomnia Migraine Narcolepsy and cataplexy Ovarian cyst Presence of retained hardware Renal cyst Seasonal allergic rhinitis Sleep apnea Surgical History Surgical History History of cholecystectomy History of laparoscopy History of ovarian cystectomy S/P hardware removal [place] teeth removed Family History Family History Father , stroke Acute myocardial infarction, Onset Age: 50 Asthma Cerebrovascular accident Depression possible related with neurosyphilis Mother Rheumatoid arthritis Asthma Other Depression Maternal aunt Social History Social History Smoking status: Never smoker Alcohol intake: current Drinks per week: 1 Substance use: never Substance use type: does not use Gender identity (if verbalized by the patient): Female Spiritual care concerns: No Exam Const: General: no acute distress and alert Nutritional Appearance: well nourished Orientation/consciousness: patient oriented x3 HENMT: Head: normal to inspection Neck: Neck: normal visual inspection Chest: Chest palpation & inspection: tenderness Resp: Effort & Inspection: normal respiratory effort Auscultation: crackles Cardio: Rate: regular rate Rhythm: regular rhythm GI: GI Palp: Yes Soft to palpation and No Tenderness to palpation present (GI) Skin: General skin exam: normal color Neuro: General: patient oriented x3, moves all extremities, no focal motor deficits and CN's II-XI intact bilaterally Speech: normal speech Extrem: General: normal to inspection and no edema Course Vital Signs Vital signs: Vital Signs Temperature 36.6 C 06/02/20 14:33 Pulse Rate 124 H 06/02/20 14:33 Respiratory Rate 22 H 06/02/20 14:33 Blood Pressure 130/89 06/02/20 14:33 Pulse Oximetry 94 06/02/20 14:33 Temperature 36.6 C 06/02/20 14:33 Pulse Rate 96 06/02/20 18:34 Respiratory Rate 18 06/02/20 18:34 Blood Pressure 137/76 06/02/20 18:34 Pulse Oximetry 98 06/02/20 18:34 MDM - URI/Sore Throat MDM Narrative Medical decision making narrative: She has expected COVID-19 symptoms. Labs and vitals stable. No indication for admission. I will attempt to provide some relief with symptomatic treatment. Differential Diagnosis Differential diagnosis: Likely upper resp
[2020-06-02 15:22] LABS: Basophils Percent Auto 0.6 % (0.2-1.2); Eosinophils Absolute Auto 0.1 K/mm3 (0-0.3); Hematocrit 39.8 % (37.0-47.0); Hemoglobin 13.1 g/dL (12.0-15.0); Immature Granulocyte Absolute 0.01 K/mm3 (0.00-0.031); Immature Granulocyte Percent A 0.3 % (0-0.5); Lymphocytes Absolute Auto 1.74 K/mm3 (0.9-3.2); Lymphocytes Percent Auto 49.2 % (18.3-44.2); Mean Corpuscular HGB Conc 32.9 g/dl (32-36); Mean Corpuscular Hemoglobin 27.6 pg (26-34); Mean Corpuscular Volume 83.8 fl (80-100); Mean Platelet Volume 9.9 fl (7.4-10.4); Monocytes Absolute Auto 0.3 K/mm3 (0.1-0.6); Monocytes Percent Auto 9.6 % (2.6-8.5); Neutrophils Absolute Auto 1.4 K/mm3 (1.3-6.7); Neutrophils Percent Auto 38.3 % (45.5-73.1); Platelet Count Result 261 k/mm3 (150-375); Red Blood Count 4.75 M/mm3 (4.2-5.4); Red Cell Distribution Width 14.8 % (11.5-14.5); White Blood Count 3.5 K/mm3 (4.5-10.0)
[2020-06-02] MEDS: IPRATROPIUM BR 0.02% INH SOLN 0.5 MG/2.5 ML VIAL INHALATION (15:30)
[2020-06-02] MEDS: ALBUTEROL SULFATE NEB 2.5 MG/0.5 ML INH 5 MG INHALATION (15:30)
[2020-06-02 15:31] VITALS: PULSE 108; RESP 24
[2020-06-02] MEDS: ONDANSETRON INJ 4 MG/2 ML VIAL IV PUSH (15:33)
[2020-06-02] MEDS: SODIUM CHLORIDE 0.9% IV 1,000 ML 999 ML IV CONT (15:33)
[2020-06-02 15:38] VITALS: PULSE 109; RESP 24
[2020-06-02 15:52] LABS: Anion Gap 12 mmol/L (8-16); Blood Urea Nitrogen 10 mg/dL (7-17); Calcium 9.1 mg/dL (8.4-10.2); Carbon Dioxide 26 mmol/L (22-30); Chloride 102 mmol/L (98-107); Estimated CRCL calculation 97 ml/min; Estimated Glomerular Filt Rate > 60; Glucose 122 mg/dL (65-105); Potassium 3.4 mmol/L (3.4-5.0); Sodium 140 mmol/L (137-145)
[2020-06-02 16:59] VITALS: BP 135/74; PULSE 102; RESP 18; O2SAT 94
[2020-06-02 17:21] VITALS: BP 137/78; PULSE 114; RESP 22; O2SAT 92
[2020-06-02] MEDS: KETOROLAC 30 MG/ML VIAL (*BKC) IV PUSH (17:44)
[2020-06-02 18:34] VITALS: BP 137/76; PULSE 96; RESP 18; O2SAT 98
== END 2020-06-02 18:35 | disposition home or self-care (01) ==
PROVIDERS: Emergency Provider Emergency Medicine; PCP Family Medicine
DX: U07.1 COVID-19 (principal); Z86.2 Personal history of diseases of the blood and blood-forming organs and certain disorders involving the immune mechanism; J45.909 Unspecified asthma, uncomplicated; N80.9 Endometriosis, unspecified; G47.30 Sleep apnea, unspecified; Z97.5 Presence of (intrauterine) contraceptive device; R91.8 Other nonspecific abnormal finding of lung field
CPT/HCPCS: 36415; 71045; 80048; 85025; 94640; 96365; 96374; 96375; 99284; J1100; J1885; J2405; J7030

== ENCOUNTER 2020-06-12 16:33 | Outpatient (NON) | payer OTHER, SELFPAY | END 2020-06-12 16:34 | LOC: ANHLAB 16:33 | PROVIDERS: PCP Family Medicine; Visit Provider Family Medicine | DX: R19.7 Diarrhea, unspecified (principal); U07.1 COVID-19 | CPT/HCPCS: 87045; 87046; 87427 ==